=== PATIENT | female | born 1985 | race Caucasian/White ===

== ENCOUNTER 2018-12-28 22:57 | Inpatient (IN) | payer MEDICAID ==
[~2018-12-28] VITALS: Ht 170.2 cm; Wt 69.1 kg
--- NOTE | 2018-12-28 23:27 | NUR ---
PT bib remsa for SA with medications. [employer] states she has been combative and pt was recieved in handcuffs. PT placed in 4 point restraints by hospital security staff. er md in to assess pt. pt aggitated and cursing at staff. pt placed on bedpan per pt request.
--- NOTE | 2018-12-28 23:28 | NUR ---
PT ATTACHED TO ALL MONITORS
--- NOTE | 2018-12-28 23:34 | NUR ---
pt mother called and states pt has been extremely suicidal since Thursday. Pt mother named Clayton Walton [phone]
[2018-12-28 23:40] LABS: BASOPHILS # (AUTO) 0.04 x10^3/uL (0-0.1); BASOPHILS % (AUTO) 1 % (0-1); EOSINOPHILS # (AUTO) 0.29 x10^3/uL (0-0.4); EOSINOPHILS % (AUTO) 4 % (1-7); LYMPHOCYTES # (AUTO) 2.89 x10^3/uL (1-3.4); LYMPHOCYTES % (AUTO) 40 % (22-44); MD NO; MEAN CORPUSCULAR HEMOGLOBIN 31.8 pg (27.0-34.8); MEAN CORPUSCULAR VOLUME 96.4 fL (80-100); MEAN PLATELET VOLUME 8.3 fL (7.4-10.4); MONOCYTES % (AUTO) 7 % (2-9); NEUTROPHILS # (AUTO) 3.48 x10^3/uL (1.8-6.8); NEUTROPHILS % (AUTO) 48 % (42-75); PLATELET COUNT 257 x10^3/uL (130-400); RED CELL DISTRIBUTION WIDTH 13.8 % (9.6-15.2)
[2018-12-28 23:49] LABS: ALANINE AMINOTRANSFERASE 29 U/L (12-78); ALBUMIN 3.8 g/dL (3.4-5.0); ANION GAP 10 mmol/L (5-15); CALCIUM 8.8 mg/dL (8.5-10.1); CHLORIDE 110 mmol/L (98-107); CREATININE 0.82 mg/dL (0.55-1.02); SALICYLATE LEVEL 4.9 mg/dL (2.8-20.0)
[2018-12-28 23:54] LABS: ALKALINE PHOSPHATASE 63 U/L (45-117); BILIRUBIN,TOTAL 0.3 mg/dL (0.2-1.0); TOTAL PROTEIN 7.4 g/dL (6.4-8.2)
--- NOTE | 2018-12-29 | NUR ---
PT CONTINUES TO BE AGGITATED
[2018-12-29 00:47] LABS: MICROSCOPIC AUTO
--- NOTE | 2018-12-29 00:49 | NUR ---
PT CONTINUES TO BE AGGITATED, CURSING AT STAFF AND MAKING THREATS TO [facility]. PT CRYING PERIODICALY.
[2018-12-29 00:51] LABS: CULTURE INDICATED? YES
[2018-12-29 00:58] LABS: AMPHETAMINE SCREEN, URINE Positive (Negative); BARBITURATE SCREEN, URINE Negative (Negative); BENZODIAZEPINE SCREEN, URINE Positive (Negative); CANNABINOID SCREEN, URINE Positive (Negative); COCAINE SCREEN, URINE Negative (Negative); METHADONE SCREEN, URINE Negative (Negative); OPIATE SCREEN, URINE Negative (Negative)
[2018-12-29] MEDS ORDERED: FOSFOMYCIN 3 GM PACKET PO ONE (01:05)
--- NOTE | 2018-12-29 01:16 | NUR ---
ALL RESTRAINTS REMOVED FROM PT BY SECURITY STAFF
--- NOTE | 2018-12-29 01:17 | NUR ---
PT SLEEPING, UNABLE TO GIVE ABX FOR UTI
--- NOTE | 2018-12-29 01:17 | NUR ---
TALKED WITH ER MD GARZON, PT TO BE ADMITTED FOR OBSERVATION DUE TO RECENT OVERDOSE
--- NOTE | 2018-12-29 01:46 | NUR ---
REPORT GIVEN TO TU GONZALES
[2018-12-29 02:18] VITALS: BP 123/83
[2018-12-29 02:19] VITALS: BP 123/83
[2018-12-29] MEDS ORDERED: ENOXAPARIN 40 MG/0.4 ML SQ SCH (04:00)
[2018-12-29] MEDS ORDERED: ONDANSETRON 2MG/ML, 2ML IVPush PRN (04:00)
[2018-12-29] MEDS: PLEASE ENTER ALLERGIES MC SCH ×11 (04:00→13:37)
[2018-12-29 04:44] VITALS: BP 118/80
[2018-12-29] MEDS: D5%-0.45NACL+KCL 20MEQ 1,000 ML IV SCH ×2 (04:44→11:47)
[2018-12-29 06:37] VITALS: BP 111/74
[2018-12-29 12:08] VITALS: BP 117/78
== END 2018-12-29 16:44 | DRG 918 ==
LOC: ED 12-29 01:30 → EDIP 12-29 02:13 → 4EST 12-29 02:14
PROVIDERS: ADMIT Family Medicine; ATTEND Internal Medicine
DX: T42.4X2A Poisoning by benzodiazepines, intentional self-harm, initial encounter (principal); T45.0X2A Poisoning by antiallergic and antiemetic drugs, intentional self-harm, initial encounter; F10.20 Alcohol dependence, uncomplicated; N30.90 Cystitis, unspecified without hematuria; F32.9 Major depressive disorder, single episode, unspecified; T42.6X2A Poisoning by other antiepileptic and sedative-hypnotic drugs, intentional self-harm, initial encounter; Y92.89 Other specified places as the place of occurrence of the external cause; T22.112A Burn of first degree of left forearm, initial encounter; T31.0 Burns involving less than 10% of body surface; E87.6 Hypokalemia; Z78.1 Physical restraint status; Z63.8 Other specified problems related to primary support group
CPT/HCPCS: 36415; 80053; 80307; 81001; 84703; 85025; 87086; 93005; 99291; G0378; J3480

== ENCOUNTER 2018-12-29 13:39 | Inpatient (IN) | payer MEDICAID ==
[~2018-12-29] VITALS: Ht 170.2 cm; Wt 65.4 kg
[2018-12-29] MEDS ORDERED: DOCUSATE 100 MG CAPSULE PO PRN (14:00)
[2018-12-29] MEDS ORDERED: POLYETHYLENE GLYCOL 17 GM PACKET PO PRN (14:00)
[2018-12-29] MEDS ORDERED: BISACODYL 10 MG SUPP PR PRN (14:00)
[2018-12-29] MEDS ORDERED: ONDANSETRON ODT 4 MG PO PRN (14:00)
[2018-12-29] MEDS ORDERED: PLEASE ENTER HEIGHT AND WEIGHT MC SCH (14:30)
[2018-12-29 16:55] VITALS: BP 137/84
[2018-12-29 17:34] VITALS: BP 137/84
[2018-12-29] MEDS: FLUOXETINE HCL 20 MG CAPSULE PO SCH (18:11)
[2018-12-29] MEDS: ALPRazolam 1MG TAB PO SCH ×2 (18:11→20:12)
[2018-12-29] MEDS: ACETAMINOPHEN 325 MG TABLET PO PRN (18:11)
[2018-12-29 20:00] VITALS: BP 121/83
[2018-12-29] MEDS ORDERED: NICOTINE 21 MG/24 HR PATCH.TD24 TD SCH (21:00)
[2018-12-29] MEDS: NICOTINE 21 MG/24 HR PATCH.TD24 TD SCH (21:48)
[2018-12-30 07:15] VITALS: BP 117/72
[2018-12-30 08:56] LABS: CHOL/HDL RATIO 2.7; FREE T4 (FREE THYROXINE) 1.03 ng/dL (0.76-1.46); LDL/HDL RATIO 1.5 (0.5-3.0); THYROID STIMULATING HORMONE 1.21 mIU/L (0.358-3.740)
[2018-12-30] MEDS: ALPRazolam 1MG TAB PO SCH ×2 (08:56→19:59)
[2018-12-30] MEDS: FLUOXETINE HCL 20 MG CAPSULE PO SCH (08:57)
[2018-12-30] MEDS ORDERED: NICOTINE 21 MG/24 HR PATCH.TD24 TD SCH (09:00)
[2018-12-30] MEDS ORDERED: ALPRazolam 1MG TAB PO ONE (15:00)
[2018-12-30 15:30] LABS: AMPHETAMINE SCREEN, URINE Negative (Negative); BARBITURATE SCREEN, URINE Negative (Negative); BENZODIAZEPINE SCREEN, URINE Positive (Negative); CANNABINOID SCREEN, URINE Positive (Negative); COCAINE SCREEN, URINE Negative (Negative); METHADONE SCREEN, URINE Negative (Negative); OPIATE SCREEN, URINE Negative (Negative)
[2018-12-30 19:28] VITALS: BP 125/69
[2018-12-30] MEDS: NICOTINE 21 MG/24 HR PATCH.TD24 TD SCH (20:00)
[2018-12-30] MEDS: ACETAMINOPHEN 325 MG TABLET PO PRN (20:03)
[2018-12-31 07:33] VITALS: BP 120/76
[2018-12-31] MEDS: FLUOXETINE HCL 20 MG CAPSULE PO SCH (08:59)
[2018-12-31] MEDS: ALPRazolam 1MG TAB PO SCH (08:59)
[2018-12-31] MEDS ORDERED: NICO-487 TD (10:25)
[2018-12-31] MEDS ORDERED: FLUO20CA8 PO (10:25)
[2018-12-31] MEDS ORDERED: CLON0.1T22 PO (10:25)
== END 2018-12-31 11:25 | disposition home or self-care (01) | DRG 885 ==
LOC: 3E 14:07
PROVIDERS: ADMIT Psychiatry & Neurology Psychosomatic Medicine; ATTEND Psychiatry & Neurology Psychosomatic Medicine
DX: F33.2 Major depressive disorder, recurrent severe without psychotic features (principal); E87.6 Hypokalemia; F12.10 Cannabis abuse, uncomplicated; F17.210 Nicotine dependence, cigarettes, uncomplicated; F41.1 Generalized anxiety disorder; G47.00 Insomnia, unspecified; Z79.899 Other long term (current) drug therapy
CPT/HCPCS: 36415; 71045; 80061; 80307; 82140; 82607; 84439; 84443; 86592

== ENCOUNTER 2020-04-16 21:23 | Emergency (ER) | payer MEDICAID ==
[~2020-04-16 21:23] MED LIST: CLON0.1T22 PO; FLUO20CA23 PO; NICO-487 TD
--- NOTE | 2020-04-16 21:37 | NUR ---
CALLED FOR PT IN LOBBY, NO RESPONSE. REPORT RC'VD FROM [facility] AT 2114 WAS THAT PT WAS BEING HELD AT [facility] BY [employer] FOR SHOPLIFTING, THEN C/O BROKEN ANKLES, TIB/FIB FX, AND OTHER COMPLAINTS. PER EMS, PT ABLE TO "HOBBLE" AROUND, NO OBVIOUS DEFORMITIES OR DISTRESS. NO INTERVENTIONS DONE.
--- NOTE | 2020-04-16 22:10 | NUR ---
PT CALLED FOR TRIAGE, NO ANSWER
--- NOTE | 2020-04-16 22:30 | NUR ---
triage note: no answer in lobby for triage x3
== END 2020-04-16 22:33 | disposition left against medical advice (07) ==
LOC: ED 22:00
DX: M25.571 Pain in right ankle and joints of right foot (principal); M25.572 Pain in left ankle and joints of left foot; Z53.21 Procedure and treatment not carried out due to patient leaving prior to being seen by health care provider